=== PATIENT | female | born 1990 | race American Indian/Alaskan Native ===

== ENCOUNTER 2016-12-02 14:19 | Inpatient (IN) | payer MEDICAID ==
[2016-12-02 15:41] LABS: Bilirubin,Urine NEG (Negative); Blood,Urine NEG (Negative); Ketones,Urine NEG (Negative); Leukocyte Esterase,Urine NEG (Negative); Mucus,Urine FEW /HPF; Nitrite,Urine NEG (Negative); Protein,Urine <15 mg/dL mg/dL (Negative); Urobilinogen,Urine < 2.0 mg/dL (<2.0)
[2016-12-02 15:47] LABS: WBC,Urine < 1.0 /HPF (0.0-6.0)
--- NOTE | 2016-12-02 15:47 | History and Physical Report ---
History of Present Illness Date of examination: 12/02/16 Chief complaint: Painful contractions, elevated blood pressure History of present illness: 26-year-old 001 at 38+6 presents with above complaints and issues, she does have [facility] patient. Patient presents with headaches and elevated blood pressures in the 140s over 90s. care has been unremarkable with normal pressures, she was seen by [facility] for size less than dates. 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 denies: chlamydia, gonorrhea, hepatitis B, hepatitis C, HIV, syphilis Social history: single, full code. denies: smoking, alcohol abuse, prescription drug abuse, IV drug use - Obstetrical History Expected Date of Delivery: 12/10/16 Actual Gestation: 38 Week(s) 6 Day(s) : 2 Para: 1 Number of Pregnancies: 1 Medications and Allergies Allergies Allergy/AdvReac Type Severity Reaction Status Date / Time No Known Allergies Allergy Verified 10/23/13 07:53 Home Medications Medication Instructions Recorded Confirmed Last Taken Type No.25/Iron/FA #6/Dha 1 each PO QDAY 09/26/13 04/12/14 04/11/14 10:00 History [Prena1 Softgel] Valacyclovir HCl [Valacyclovir] 1 tab PO DAILY 04/10/14 04/12/14 04/10/14 10:00 History HYDROcodone/APAP 5-325 [[place] 2 each PO Q6H PRN #20 tablet 04/13/14 Unknown Rx 5-325 mg TAB] Ibuprofen [Motrin 600 MG tab] 600 mg PO Q6H #30 tablet 04/13/14 Unknown Rx Vit-Fe Fumar-FA [ 1 each PO QDAY #60 tablet 04/13/14 Unknown Rx Vitamin] Ondansetron [Zofran Odt] 4 mg PO Q6H #10 tab.rapdis 04/28/16 Unknown Rx Review of Systems Constitutional: chronic headaches, no fever, no chills, no sweats Cardiovascular: high blood pressure, no chest pain, no lightheadedness, no shortness of breath Respiratory: no hemoptysis, no shortness of breath, no dyspnea on exertion Gastrointestinal: abdominal pain (Painful contractions), no vomiting, no diarrhea, no heartburn, no indigestion Genitourinary: no vaginal bleeding, no vaginal discharge, no leakage of fluid, no genital sores - Vital Signs Vital signs: Vital Signs Pulse BP 87 146/89 12/02/16 14:48 12/02/16 14:48 Temp Pulse Resp BP Pulse Ox 80 145/80 12/02/16 15:25 12/02/16 15:25 - Physical Exam Cardiovascular: Regular rate, Normal S1, Normal S2 Lungs: Positive: Clear to auscultation Abdomen: Positive: normal appearance, soft. Negative: distention, tenderness, guarding, rigidity Genitourinary (Female): Positive: normal external genitalia Uterus: Positive: enlarged (EFW ~ 3200) Adnexa: both: normal Extremities: Positive: normal - Obstetrical FHR: category 1 Cervical Dilatation: 4 Cervical Effacement Percentage: 70 station: -3 Results All other labs normal. Assessment and Plan A: 26 y/o at 38+6 wks with new onset HTN and severe PATIÑO -?Pre E P: -Admit -Obtain HELLP labs -Start Magnesium per protocol -Anti-HTN -Proceed to delivery - Patient Problems (1) 38 weeks gestation of Current Visit: Yes Status: Acute (2) Hypertension affecting in third trimester Current Visit: Yes Status: Acute (3) Uterine contractions Current Visit: Yes Status: Acute
[2016-12-02] MEDS ORDERED: XYLOCAINE 2% INFILTRATI ONE ×2 (15:53→21:08)
[2016-12-02] MEDS ORDERED: MINERAL OIL PO PRN (15:53)
[2016-12-02] MEDS ORDERED: SUBLIMAZE IV PRN (15:53)
[2016-12-02] MEDS ORDERED: BRETHINE SUB-Q PRN (15:53)
[2016-12-02] MEDS ORDERED: BRETHINE IVP PRN (15:53)
[2016-12-02] MEDS ORDERED: ZOFRAN IV PRN (15:53)
[2016-12-02] MEDS ORDERED: ePHEDrine SULFATE IV PRN ×2 (15:53→20:02)
[2016-12-02] MEDS ORDERED: NORMODYNE IV ONE (15:56)
[2016-12-02] MEDS ORDERED: APRESOLINE IV PRN (15:56)
[2016-12-02] MEDS ORDERED: MAGNESIUM SULFATE 4GM/100ML 4 GM/100 ML BAG IV ONE (15:56)
[2016-12-02] MEDS ORDERED: PITOCin/NS 20 UNIT/1000ML DRIP 20 UNIT/1,000 ML BAG IV SCH (16:00)
[2016-12-02] MEDS ORDERED: PITOCin/NS 30 UNIT/500ML 30 UNIT/500 ML BAG IV SCH (16:00)
[2016-12-02] MEDS ORDERED: LACTATED RINGERS 1,000 ML IV SCH (16:00)
[2016-12-02] MEDS ORDERED: MAGNESIUM SULFATE 40GM/1000ML 40 GM/1,000 ML BAG IV NR (16:00)
[2016-12-02] MEDS ORDERED: TYLENOL PO PRN (16:54)
[2016-12-02] MEDS ORDERED: NORMODYNE IV PRN (16:56)
[2016-12-02 17:09] LABS: Hematocrit 38.2 % (30.3-42.9); Hemoglobin 12.2 gm/dl (10.1-14.3); Mean Corpuscular HGB Conc 32 % (30-34); Mean Corpuscular Hemoglobin 28 pg (28-32); Mean Corpuscular Volume 86 fl (79-97); Platelet Count 193 K/mm3 (140-440); Red Blood Count 4.44 M/mm3 (3.65-5.03); Red Cell Distribution Width 13.8 % (13.2-15.2)
[2016-12-02] MEDS ORDERED: POLYCILLIN/NS 2 GM/100 ML 2 GM/100 ML BAG IV ONE ×2 (17:23→17:25)
[2016-12-02 17:29] LABS: Alanine Aminotransferase 9 units/L (7-56); Albumin 3.4 g/dL (3.9-5); Albumin/Globulin Ratio 0.9 %; Alkaline Phosphatase 241 units/L (35-129); Bilirubin,Total 0.2 mg/dL (0.1-1.2); Blood Urea Nitrogen 11 mg/dL (7-17); Calcium 8.6 mg/dL (8.4-10.2); Carbon Dioxide 21 mmol/L (22-30); Chloride 98.6 mmol/L (98-107); Glucose 65 mg/dL (65-100); Potassium 4.1 mmol/L (3.6-5.0); Sodium 134 mmol/L (137-145)
[2016-12-02 17:31] LABS: Bilirubin,Direct < 0.2 mg/dL (0-0.2)
[2016-12-02 17:32] LABS: Anion Gap 19 mmol/L
[2016-12-02] MEDS ORDERED: NARCAN 2 MG/2 ML IV PRN (20:02)
--- NOTE | 2016-12-02 20:02 | Anesthesia Consultation ---
Anesthesia Consult and Med Hx Date of service: 12/02/16 - Airway Anesthetic Teeth Evaluation: Good ROM Head & Neck: Adequate Mental/Hyoid Distance: Adequate Intubation Access Assessment: Probably Good - Pre-Operative Health Status ASA Pre-Surgery Classification: ASA2 - Pulmonary Hx Asthma: No COPD: No Hx Pneumonia: No - Cardiovascular System Hx Hypertension: No - Central Nervous System Hx Seizures: No Hx Psychiatric Problems: No - Endocrine Hx Renal Disease: No Hx End Stage Renal Disease: No Hx Hypothyroidism: No Hx Hyperthyroidism: No - Hematic Hx Anemia: No Hx Sickle Cell Disease: No - Other Systems Hx Alcohol Use: Yes
[2016-12-02] MEDS: PITOCin/NS 30 UNIT/500ML 30 UNIT/500 ML BAG IV SCH ×4 (20:43→21:52)
[2016-12-02] MEDS ORDERED: fentaNYL-BUPIV 2 MCG/ML-0.125% 200 MCG/100 ML BAG EPIDURAL SCH (21:00)
[2016-12-02] MEDS: POLYCILLIN/NS 1 GM/50 ML 1 GM/50 ML BAG IV SCH (21:25)
--- NOTE | 2016-12-02 23:05 | Progress Note ---
Assessment and Plan A: 26 y/o at 38+6 wks with new onset HTN and severe PATIÑO -?Pre E P: -AROMed with clear fluid noted -IUPC and FSE placed -Continue present care -Anticipate - Patient Problems (1) 38 weeks gestation of Current Visit: Yes Status: Acute (2) Hypertension affecting in third trimester Current Visit: Yes Status: Acute (3) Uterine contractions Current Visit: Yes Status: Acute Subjective - Subjective Date of service: 12/02/16 Interval history: Patient still has a headache but her BP is now wnl on magnesium. She is currently on Pit @ 14 mu/min. On exam, currently has no cervical change Patient reports: new complaints, movement normal, contractions, no loss of fluid, no vaginal bleeding Objective - Vital Signs Vital Signs: Vital Signs - 12hr 12/02/16 12/02/16 12/02/16 14:48 15:09 15:25 Temperature Pulse Rate 87 80 80 Pulse Rate [ Left From Monitor] Respiratory Rate Blood Pressure 146/89 149/81 145/80 Blood Pressure [Left Arm] O2 Sat by Pulse Oximetry 12/02/16 12/02/16 12/02/16 16:18 16:36 16:40 Temperature 97.6 F Pulse Rate 85 78 Pulse Rate [ Left From Monitor] Respiratory Rate Blood Pressure 134/73 132/79 Blood Pressure 132/79 [Left Arm] O2 Sat by Pulse Oximetry 12/02/16 12/02/16 12/02/16 16:52 17:07 17:21 Temperature Pulse Rate 74 80 86 Pulse Rate [ Left From Monitor] Respiratory Rate Blood Pressure 146/78 133/67 140/75 Blood Pressure [Left Arm] O2 Sat by Pulse Oximetry 12/02/16 12/02/16 12/02/16 17:37 17:51 18:05 Temperature Pulse Rate 82 85 86 Pulse Rate [ Left From Monitor] Respiratory Rate Blood Pressure 129/69 134/74 132/78 Blood Pressure [Left Arm] O2 Sat by Pulse Oximetry 12/02/16 12/02/16 12/02/16 18:24 18:38 18:52 Temperature Pulse Rate 78 80 81 Pulse Rate [ Left From Monitor] Respiratory Rate Blood Pressure 123/70 133/77 141/77 Blood Pressure [Left Arm] O2 Sat by Pulse Oximetry 12/02/16 12/02/16 12/02/16 19:06 19:09 19:36 Temperature 98.5 F Pulse Rate 81 85 Pulse Rate [ 81 Left From Monitor] Respiratory 18 Rate Blood Pressure 141/82 Blood Pressure 141/82 [Left Arm] O2 Sat by Pulse 100 Oximetry 12/02/16 12/02/16 12/02/16 19:41 19:42 19:46 Temperature Pulse Rate 90 88 84 Pulse Rate [ Left From Monitor] Respiratory Rate Blood Pressure 165/99 Blood Pressure [Left Arm] O2 Sat by Pulse 100 100 Oximetry 12/02/16 12/02/16 12/02/16 19:48 19:50 19:51 Temperature Pulse Rate 86 79 88 Pulse Rate [ Left From Monitor] Respiratory Rate Blood Pressure 147/67 144/59 Blood Pressure [Left Arm] O2 Sat by Pulse 100 Oximetry 12/02/16 12/02/16 12/02/16 19:52 19:54 19:56 Temperature Pulse Rate 72 82 81 Pulse Rate [ Left From Monitor] Respiratory Rate Blood Pressure 137/63 135/68 157/100 Blood Pressure [Left Arm] O2 Sat by Pulse 100 Oximetry 12/02/16 12/02/16 12/02/16 19:58 20:00 20:01 Temperature Pulse Rate 83 85 83 Pulse Rate [ Left From Monitor] Respiratory Rate Blood Pressure 162/72 117/67 Blood Pressure [Left Arm] O2 Sat by Pulse 100 Oximetry 12/02/16 12/02/16 12/02/16 20:05 20:06 20:08 Temperature Pulse Rate 81 83 82 Pulse Rate [ Left From Monitor] Respiratory Rate Blood Pressure 121/56 118/56 117/59 Blood Pressure [Left Arm] O2 Sat by Pulse 100 Oximetry 12/02/16 12/02/16 12/02/16 20:10 20:11 20:12 Temperature Pulse Rate 85 84 85 Pulse Rate [ Left From Monitor] Respiratory Rate Blood Pressure 116/57 110/58 Blood Pressure [Left Arm] O2 Sat by Pulse 99 Oximetry 12/02/16 12/02/16 12/02/16 20:14 20:16 20:18 Temperature Pulse Rate 83 82 80 Pulse Rate [ Left From Monitor] Respiratory 20 Rate Blood Pressure 107/55 111/59 114/55 Blood Pressure [Left Arm] O2 Sat by Pulse 100 Oximetry 02/02/17 02/02/17 02/02/17 20:20 20:21 20:26 Temperature Pulse Rate 78 84 83 Pulse Rate [ Left From Monitor] Respiratory Rate Blood Pressure 109/57 Blood Pressure [Left Arm] O2 Sat by Pulse 100 100 Oximetry 12/02/16 12/02/16 12/02/16 20:31 20:35 20:36 Temperature Pulse Rate 87 88 84 Pulse Rate [ Left From Monitor] Respiratory Rate Blood Pressure 107/61 Blood Pressure [Left Arm] O2 Sat by Pulse 100 100 Oximetry 12/02/16 12/02/16 12/02/16 20:41 20:46 20:51 Temperature Pulse Rate 85 86 83 Pulse Rate [ Left From Monitor] Respiratory Rate Blood Pressure Blood Pressure [Left Arm] O2 Sat by Pulse 99 100 100 Oximetry 12/02/16 12/02/16 12/02/16 20:52 20:56 21:01 Temperature Pulse Rate 83 93 H 91 H Pulse Rate [ Left From Monitor] Respiratory Rate Blood Pressure 126/62 Blood Pressure [Left Arm] O2 Sat by Pulse 100 100 Oximetry 12/02/16 12/02/16 12/02/16 21:06 21:07 21:11 Temperature Pulse Rate 69 84 91 H Pulse Rate [ Left From Monitor] Respiratory Rate Blood Pressure 119/55 Blood Pressure [Left Arm] O2 Sat by Pulse 100 100 Oximetry 12/02/16 12/02/16 12/02/16 21:16 21:21 21:26 Temperature Pulse Rate 87 85 80 Pulse Rate [ Left From Monitor] Respiratory Rate Blood Pressure 123/58 Blood Pressure [Left Arm] O2 Sat by Pulse 100 99 99 Oximetry 12/02/16 12/02/16 12/02/16 21:31 21:36 21:41 Temperature Pulse Rate 79 83 85 Pulse Rate [ Left From Monitor] Respiratory Rate Blood Pressure 108/59 Blood Pressure [Left Arm] O2 Sat by Pulse 100 100 100 Oximetry 12/02/16 12/02/16 12/02/16 21:46 21:51 21:56 Temperature Pulse Rate 83 84 85 Pulse Rate [ Left From Monitor] Respiratory Rate Blood Pressure 125/56 Blood Pressure [Left Arm] O2 Sat by Pulse 100 100 99 Oximetry 12/02/16 12/02/16 12/02/16 22:01 22:06 22:11 Temperature Pulse Rate 83 79 77 Pulse Rate [ Left From Monitor] Respiratory Rate Blood Pressure 119/59 Blood Pressure [Left Arm] O2 Sat by Pulse 99 99 100 Oximetry 12/02/16 12/02/16 12/02/16 22:16 22:21 22:22 Temperature Pulse Rate 77 74 72 Pulse Rate [ Left From Monitor] Respiratory Rate Blood Pressure 124/59 Blood Pressure [Left Arm] O2 Sat by Pulse 99 100 Oximetry 12/02/16 12/02/16 12/02/16 22:26 22:31 22:36 Temperature Pulse Rate 76 79 74 Pulse Rate [ Left From Monitor] Respiratory Rate Blood Pressure 126/65 Blood Pressure [Left Arm] O2 Sat by Pulse 98 99 97 Oximetry 12/02/16 12/02/16 12/02/16 22:41 22:46 22:51 Temperature Pulse Rate 72 80 72 Pulse Rate [ Left From Monitor] Respiratory Rate Blood Pressure 116/63 Blood Pressure [Left Arm] O2 Sat by Pulse 99 100 100 Oximetry 12/02/16 22:56 Temperature Pulse Rate 82 Pulse Rate [ Left From Monitor] Respiratory Rate Blood Pressure Blood Pressure [Left Arm] O2 Sat by Pulse 100 Oximetry - Exam FHR: category 1 Cervical Dilatation: 4 Cervical Effacement Percentage: 70 station: -3 - Labs Labs: Abnormal Labs 12/02/16 16:30 Sodium 134 L Carbon Dioxide 21 L Creatinine 0.4 L Alkaline Phosphatase 241 H Albumin 3.4 L Laboratory Results - last 24 hr 12/02/16 12/02/16 12/02/16 15:10 16:30 16:30 WBC 7.0 RBC 4.44 Hgb 12.2 Hct 38.2 MCV 86 MCH 28 MCHC 32 RDW 13.8 Plt Count 193 Sodium Potassium Chloride Carbon Dioxide Anion Gap BUN Creatinine Estimated GFR BUN/Creatinine Ratio Glucose Calcium Magnesium Total Bilirubin Direct Bilirubin Indirect Bilirubin AST ALT Alkaline Phosphatase Total Protein Albumin Albumin/Globulin Ratio Urine Color Yellow Urine Turbidity Clear Urine pH 7.0 Ur Specific [place] 1.013 Urine Protein <15 mg/dl Urine Glucose (UA) Neg Urine Ketones Neg Urine Blood Neg Urine Nitrite Neg Urine Bilirubin Neg Urine Urobilinogen < 2.0 Ur Leukocyte Esterase Neg Urine WBC (Auto) < 1.0 Urine RBC (Auto) 3.0 U Epithel Cells (Auto) 1.0 Urine Mucus Few Blood Type O POSITIVE Antibody Screen Negative 12/02/16 12/02/16 16:30 16:30 WBC RBC Hgb Hct MCV MCH MCHC RDW Plt Count Sodium 134 L Potassium 4.1 Chloride 98.6 Carbon Dioxide 21 L Anion Gap 19 BUN 11 Creatinine 0.4 L Estimated GFR > 60 BUN/Creatinine Ratio 27.50 Glucose 65 Calcium 8.6 Magnesium 1.8 Total Bilirubin 0.2 Direct Bilirubin < 0.2 Indirect Bilirubin 0.0 AST 18 ALT 9 Alkaline Phosphatase 241 H Total Protein 7.0 Albumin 3.4 L Albumin/Globulin Ratio 0.9 Urine Color Urine Turbidity Urine pH Ur Specific [place] Urine Protein Urine Glucose (UA) Urine Ketones Urine Blood Urine Nitrite Urine Bilirubin Urine Urobilinogen Ur Leukocyte Esterase Urine WBC (Auto) Urine RBC (Auto) U Epithel Cells (Auto) Urine Mucus Blood Type Antibody Screen
[2016-12-02] MEDS: PITOCin/NS 30 UNIT/500ML 30 UNITS/500 ML BAG IV SCH (23:37)
[2016-12-03] MEDS: PITOCin/NS 30 UNIT/500ML 30 UNITS/500 ML BAG IV SCH ×2 (00:11→01:00)
[2016-12-03] MEDS: POLYCILLIN/NS 1 GM/50 ML 1 GM/50 ML BAG IV SCH (01:02)
[2016-12-03] MEDS ORDERED: XYLOCAINE MPF 2% ONE (01:55)
--- NOTE | 2016-12-03 02:41 | Procedure Note ---
OB Delivery Note - Delivery Date of Delivery: 12/03/16 Surgeon: CLAUDE MAYER Estimated blood loss: 100cc - Vaginal Delivery presentation: vertex Delivery position: OA Intrapartum events: gestational hypertension Delivery induction: none Delivery augmentation: rupture of membranes, pitocin Delivery monitor: external FHT, external uterine, internal FHT, internal uterine Route of delivery: Delivery placenta: spontaneous Delivery cord: nuchal cord, 3 umbilical vessels Episiotomy: none Delivery laceration: none Anesthesia: epidural - A at 1 minute: 8 at 5 minutes: 9 Infant Gender: Female (Del @ 02:28, Infant weight is 6#7 or 2912 g)
[2016-12-03] MEDS ORDERED: DERMOPLAST TP PRN (02:45)
[2016-12-03] MEDS ORDERED: ANUCORT-HC PR PRN (02:45)
[2016-12-03] MEDS ORDERED: ZOFRAN IV PRN (02:45)
[2016-12-03] MEDS ORDERED: PHENERGAN PO PRN (02:45)
[2016-12-03] MEDS ORDERED: MILK OF MAGNESIA PO PRN (02:45)
[2016-12-03] MEDS ORDERED: PHENERGAN PR PRN (02:45)
[2016-12-03] MEDS ORDERED: DULCOLAX PR PRN (02:45)
[2016-12-03] MEDS ORDERED: TUCKS PAD TP PRN (02:45)
[2016-12-03] MEDS ORDERED: TYLENOL PO PRN (02:45)
[2016-12-03] MEDS ORDERED: LANSINOH TP PRN (02:45)
[2016-12-03] MEDS ORDERED: BENADRYL PO PRN (02:45)
[2016-12-03] MEDS ORDERED: SODIUM CHLORIDE FLUSH SYRINGE 10 ML IV PRN (03:00)
[2016-12-03] MEDS ORDERED: SENOKOT S PO SCH (03:00)
[2016-12-03] MEDS ORDERED: PITOCin/NS 20 UNIT/1000ML DRIP 20 UNIT/1,000 ML BAG IV SCH (03:00)
[2016-12-03] MEDS: MOTRIN PO SCH ×4 (05:23→23:19)
[2016-12-03] MEDS: PRENATAL VITAMIN PO SCH (09:09)
[2016-12-03] MEDS: COLACE PO SCH ×2 (09:09→21:25)
[2016-12-03] MEDS: FEOSOL PO SCH ×2 (09:09→21:25)
[2016-12-03] MEDS: NORCO 5/325 PO PRN ×2 (09:09→21:25)
[2016-12-03 16:56] LABS: Hematocrit 35.9 % (30.3-42.9); Hemoglobin 11.6 gm/dl (10.1-14.3)
[2016-12-04] MEDS: NORCO 5/325 PO PRN ×3 (04:40→21:40)
[2016-12-04] MEDS: MOTRIN PO SCH ×4 (06:31→23:51)
--- NOTE | 2016-12-04 11:13 | Progress Note ---
Assessment and Plan - Patient Problems (1) Status post normal vaginal delivery Onset Date: 12/04/16 Current Visit: No Status: Resolved Plan to address problem: A: S/P - PPD #1 Doing well P: May go home tomorrow Subjective - Subjective Date of service: 12/04/16 Principal diagnosis: s/p - PPD #1 Interval history: Pt is feeling well without complaints. Bleeding improved. Patient reports: appetite normal, voiding normally, pain well controlled, flatus , ambulating normally Edwards: doing well, bottle feeding Objective - Vital Signs Latest vital signs: Vital Signs Temp Pulse Resp BP 12/04/16 04:25 98.6 F 79 16 121/75 12/04/16 00:20 98.5 F 72 22 140/68 12/03/16 20:00 98.5 F 82 20 153/82 12/03/16 16:45 98.4 F 77 18 126/79 12/03/16 13:12 97.9 F 72 20 140/74 Intake and Output 12/03/16 12/04/16 12/04/16 22:59 06:59 14:59 Output Total 800 Balance -800 Output: Urine 800 Void 800 Other: Total, Output Amount 800 - Exam Breasts: Present: deferred Cardiovascular: Present: Regular rate Lungs: Present: Clear to auscultation Abdomen: Present: normal appearance, soft Uterus: Present: normal, firm, fundal height below umbilicus Extremities: Present: normal Comments: Laboratory Tests 12/02/16 12/02/16 12/02/16 15:10 16:30 16:30 WBC 7.0 RBC 4.44 Hgb 12.2 Hct 38.2 MCV 86 MCH 28 MCHC 32 RDW 13.8 Plt Count 193 Sodium Potassium Chloride Carbon Dioxide Anion Gap BUN Creatinine Estimated GFR BUN/Creatinine Ratio Glucose Calcium Magnesium Total Bilirubin Direct Bilirubin Indirect Bilirubin AST ALT Alkaline Phosphatase Total Protein Albumin Albumin/Globulin Ratio Urine Color Yellow Urine Turbidity Clear Urine pH 7.0 Ur Specific [place] 1.013 Urine Protein <15 mg/dl Urine Glucose (UA) Neg Urine Ketones Neg Urine Blood Neg Urine Nitrite Neg Urine Bilirubin Neg Urine Urobilinogen < 2.0 Ur Leukocyte Esterase Neg Urine WBC (Auto) < 1.0 Urine RBC (Auto) 3.0 U Epithel Cells (Auto) 1.0 Urine Mucus Few Blood Type O POSITIVE Antibody Screen Negative 12/02/16 12/02/16 12/03/16 16:30 16:30 00:00 WBC RBC Hgb Hct MCV MCH MCHC RDW Plt Count Sodium 134 L Potassium 4.1 Chloride 98.6 Carbon Dioxide 21 L Anion Gap 19 BUN 11 Creatinine 0.4 L Estimated GFR > 60 BUN/Creatinine Ratio 27.50 Glucose 65 Calcium 8.6 Magnesium 1.8 4.3 H Total Bilirubin 0.2 Direct Bilirubin < 0.2 Indirect Bilirubin 0.0 AST 18 ALT 9 Alkaline Phosphatase 241 H Total Protein 7.0 Albumin 3.4 L Albumin/Globulin Ratio 0.9 Urine Color Urine Turbidity Urine pH Ur Specific [place] Urine Protein Urine Glucose (UA) Urine Ketones Urine Blood Urine Nitrite Urine Bilirubin Urine Urobilinogen Ur Leukocyte Esterase Urine WBC (Auto) Urine RBC (Auto) U Epithel Cells (Auto) Urine Mucus Blood Type Antibody Screen 12/03/16 16:50 WBC RBC Hgb 11.6 Hct 35.9 MCV MCH MCHC RDW Plt Count Sodium Potassium Chloride Carbon Dioxide Anion Gap BUN Creatinine Estimated GFR BUN/Creatinine Ratio Glucose Calcium Magnesium Total Bilirubin Direct Bilirubin Indirect Bilirubin AST ALT Alkaline Phosphatase Total Protein Albumin Albumin/Globulin Ratio Urine Color Urine Turbidity Urine pH Ur Specific [place] Urine Protein Urine Glucose (UA) Urine Ketones Urine Blood Urine Nitrite Urine Bilirubin Urine Urobilinogen Ur Leukocyte Esterase Urine WBC (Auto) Urine RBC (Auto) U Epithel Cells (Auto) Urine Mucus Blood Type Antibody Screen
--- NOTE | 2016-12-04 11:14 | Discharge Summary ---
Providers - Providers Date of Admission: 12/02/16 15:48 Date of discharge: 12/05/16 Attending physician: CLAUDE MAYER Primary care physician: CLAUDE MAYER Hospitalization Reason for admission: induction of labor, IUP at term, other (PIH) Delivery: Episiotomy: none Laceration: none Other procedures: none complications: none Discharge diagnosis: IUP at term delivered [place] baby: female Hospital course: Unremarkable without need for antihypertensive medication. Condition at discharge: Good Disposition: DISCHARGED TO HOME OR SELFCARE - Discharge Diagnoses (1) Status post normal vaginal delivery Status: Resolved Plan - Discharge Medications Prescriptions: Ibuprofen [Motrin 600 MG tab] 600 mg PO Q6HR #30 tablet - Provider Discharge Summary Activity: routine, no sex for 6 weeks, no heavy lifting 4 weeks, no strenuous exercise Diet: routine Instructions: routine Additional instructions: [] Smoking cessation referral if applicable(refer to patient education folder for contact #) [] Refer to [facility] Booklet Call your doctor immediately for: * Fever > 100.5 * Heavy vaginal bleeding ( >1 pad per hour) * Severe persistent headache * Shortness of breath * Reddened, hot, painful area to leg or breast * Drainage or odor from incision. * Keep incision clean and dry at all times and follow doctor's instructions regarding bathing/showering Follow up in office in 1 week for BP check - Follow up plan Follow up: CLAUDE MAYER MD [Primary Care Provider] - 7 Days
[2016-12-04] MEDS: FEOSOL PO SCH ×2 (12:03→21:40)
[2016-12-04] MEDS: PRENATAL VITAMIN PO SCH (12:03)
[2016-12-04] MEDS: COLACE PO SCH ×2 (12:04→21:40)
[2016-12-05] MEDS: MOTRIN PO SCH ×2 (05:14→11:45)
[2016-12-05] MEDS: NORCO 5/325 PO PRN (06:30)
[2016-12-05 09:39] VITALS: BP 145/76
[2016-12-05] MEDS: FEOSOL PO SCH (10:16)
[2016-12-05] MEDS: PRENATAL VITAMIN PO SCH (10:16)
[2016-12-05] MEDS: COLACE PO SCH (10:16)
== END 2016-12-05 16:00 | disposition home or self-care (01) | DRG 775 ==
LOC: TRG 14:19 → LD 15:48 → OB 12-03 04:55
PROVIDERS: ADMIT Obstetrics & Gynecology Gynecology; ATTEND Obstetrics & Gynecology Gynecology
PROC: 10907ZC Drainage of Amniotic Fluid, Therapeutic from Products of Conception, Via Natural or Artificial Opening (ICD-10-PCS; 2016-12-02)
PROC: 10H07YZ Insertion of Other Device into Products of Conception, Via Natural or Artificial Opening (ICD-10-PCS; 2016-12-02)
PROC: 10E0XZZ Delivery of Products of Conception, External Approach (ICD-10-PCS; principal; 2016-12-03)
PROC: 3E0S3CZ (ICD-10-PCS; 2016-12-03)
PROC: 00HU33Z Insertion of Infusion Device into Spinal Canal, Percutaneous Approach (ICD-10-PCS; 2016-12-03)
DX: O13.4 Gestational [pregnancy-induced] hypertension without significant proteinuria, complicating childbirth (principal); O75.89 Other specified complications of labor and delivery; Z3A.38 38 weeks gestation of pregnancy; Z37.0 Single live birth; R51 Headache; O69.81X0 Labor and delivery complicated by cord around neck, without compression, not applicable or unspecified
CPT/HCPCS: 36415; 80048; 80074; 81001; 83735; 85014; 85018; 85027; 86850; 86900; 86901; 99211; G0463; J0290; J2405; J2590; J3010; J3475; J7120